=== PATIENT | female | born 2000 | race Caucasian/White ===

== ENCOUNTER 2021-09-13 16:23 | Emergency (ER) | payer SELFPAY ==
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
[2021-09-13] MEDS ORDERED: LIDOCAINE 1% W/EPI 1:100,000 MDV 20 ML VIAL ONE (21:17)
[2021-09-13 21:59] LABS: Urine Blood Negative (Negative); Urine Glucose Negative (Negative); Urine Protein Negative (Negative); Urine Specific Gravity 1.025 (1.005-1.030)
--- NOTE | 2021-09-13 22:05 | EDPHYS ---
Physician Documentation [facility] Name: Roseann Samuel Age: 21 yrs Sex: Female : 2000 Arrival Date: 09/13/2021 Time: 16:25 Bed 25 Private MD: ED Physician Robert Elder HPI: 09/13 19:00 This 21 yrs old Female presents to ER via Ambulatory with complaints of Lump on Arm. cp 19:00 The patient or guardian complains of an abscess, small. cp 19:00 The complaints affect the dorsal aspect of left forearm. Context: resulted from unknown cp cause. Onset: The symptoms/episode began/occurred 4 day(s) ago. Treatment prior to arrival includes: no previous treatment. Associated signs and symptoms: Pertinent positives: erythema, pain, swelling, warmth, Pertinent negatives: fever. Severity of symptoms: in the emergency department the symptoms are unchanged. Historical: - Allergies: 17:56 PENICILLINS; iw ROS: 19:05 Constitutional: Negative for body aches, chills, fever, poor PO intake. cp 19:05 Eyes: Negative for injury, pain, redness, and discharge. cp 19:05 Neck: Negative for pain with movement, pain at rest, stiffness. 19:05 Respiratory: Negative for shortness of breath, wheezing. 19:05 Abdomen/GI: Negative for abdominal pain, nausea, vomiting, and diarrhea. 19:05 Back: Negative for pain at rest, pain with movement. 19:05 Skin: Positive for abscess, erythema, of the volar side left proximal forearm. 19:05 All other systems are negative. Exam: 19:10 Constitutional: The patient appears in no acute distress, alert, awake, non-toxic, well cp developed, well nourished, uncomfortable. 19:10 Head/Face: Normocephalic, atraumatic. cp 19:10 Cardiovascular: Rate: normal, Pulses: Pulses are 2+ in left radial artery. 19:10 Respiratory: the patient does not display signs of respiratory distress, Respirations: normal, no use of accessory muscles, no retractions, labored breathing, is not present. 19:10 Skin: abscess, that is small, of the volar side proximal left forearm, with induration, mild surround erythema, tender to palpation. Vital Signs: 17:56 BP 115 / 74; Pulse 82; Resp 16; Temp 98.2; Pulse Ox 100% on R/A; iw 21:13 BP 111 / 78; Pulse 84; Resp 16 S; Pulse Ox 99% on R/A; bb 22:21 BP 102 / 62; Pulse 88; Resp 16 S; Pulse Ox 100% on R/A; bb Procedures: 22:00 I \T\ D: Incision and drainage was performed for an abscess of the volar side left cp proximal phalanx Prepped with Betadine, Anesthetized with 3 ml's 1% Lidocaine w/ Epi. Incised with #11 blade. Drained small amount purulent fluid. Dressing: sterile 4x4 gauze, the patient tolerated the procedure well. MDM: 20:00 Patient medically screened. cp 21:00 Differential diagnosis: cellulitis, abscess, boild. cp 22:04 Data reviewed: vital signs, nurses notes. cp 22:04 Counseling: I had a detailed discussion with the patient and/or guardian regarding: the cp historical points, exam findings, and any diagnostic results supporting the discharge/admit diagnosis, to return to the emergency department if symptoms worsen or persist or if there are any questions or concerns that arise at home. Response to treatment: the patient's symptoms have mildly improved after treatment, improved, and as a result, I will discharge patient. 09/13 21:59 Order name: Urine --Ancillary (enter results) 2 09/13 22:00 Order name: Urine Dipstick-Ancillary [facility] 09/13 18:07 Order name: I\T\D Setup; Complete Time: 21:13 09/13 21:45 Order name: Urine Dipstick-Ancillary (obtain specimen); Complete Time: 21:58 09/13 21:45 Order name: Urine Test (obtain specimen); Complete Time: 21:58 cp Administered Medications: 20:47 Drug: Lidocaine-Epinephrine -1%: (1:100,000) 5 ml {Note: by Gabe GUARDADO to affected bb area.} Volume: 20 ml; Route: Infiltration; 22:18 Follow up: Response: No adverse reaction bb 22:18 Drug: Bactrim (trimethoprim-sulfamethoxazole) (160 mg-800 mg (DS) 1 tablet Route: PO; bb 22:22 Follow up: Response: Medication administered at discharge. bb Disposition Summary: 09/13/21 22:04 Discharge Ordered Location: Home cp Problem: new cp Symptoms: have improved cp Condition: Stable cp Diagnosis - Cutaneous abscess of left upper limb cp - Encounter for test, result negative cp Followup: cp - With: Private Physician - When: 1 - 2 days - Reason: Worsening of condition Discharge Instructions: - Discharge Summary Sheet cp - Skin Abscess cp - Incision and Drainage cp Forms: - Medication Reconciliation Form cp - Thank You Letter cp - Antibiotic Education cp - Prescription Opioid Use cp Prescriptions: - Bactrim DS 800-160 mg Oral Tablet - take 1 tablet by ORAL route every 12 hours for 10 days; 20 tablet; Refills: 0, cp Product Selection Permitted - Ibuprofen 600 mg Oral Tablet - take 1 tablet by ORAL route every 8 hours As needed take with food; 30 tablet; cp Refills: 0, Product Selection Permitted - mupirocin 2 % Topical ointment - apply 1 application by TOPICAL route 3 times per day for 14 days; 30 gram; cp Refills: 0, Product Selection Permitted Addendum: 09/15/2021 07:12 Co-signature as Attending Physician, Robert Elder MD. r n Signatures: Dispatcher [employer] Myriam Vera RN RN bb Williams, Irene, RN RN iw Nieto, Roman, MD MD rn Page, Corey, PA PA cp
--- NOTE | 2021-09-13 22:05 | ER ---
Nurse's Notes [facility] Name: Roseann Samuel Age: 21 yrs Sex: Female : 2000 Arrival Date: 09/13/2021 Time: 16:25 Bed 25 Private MD: Diagnosis: Cutaneous abscess of left upper limb;Encounter for test, result negative Presentation: 09/13 17:56 Chief complaint: Patient states: abscess to LFA X 4days. Coronavirus screen: At this iw time, the client does not indicate any symptoms associated with coronavirus-19. Ebola Screen: Patient negative for fever greater than or equal to 101.5 degrees Fahrenheit, and additional compatible Ebola Virus Disease symptoms Patient denies exposure to infectious person. Patient denies travel to an Ebola-affected area in the 21 days before illness onset. No symptoms or risks identified at this time. Initial Sepsis Screen: Does the patient meet any 2 criteria? No. Patient's initial sepsis screen is negative. Does the patient have a suspected source of infection? No. Patient's initial sepsis screen is negative. Risk Assessment: Do you want to hurt yourself or someone else? Patient reports no desire to harm self or others. Onset of symptoms was September 09, 2021. 17:56 Method Of Arrival: Ambulatory iw 17:56 Acuity: ROMELIA 4 iw Historical: - Allergies: 17:56 PENICILLINS; iw Screenin:13 Abuse screen: Denies threats or abuse. Nutritional screening: No deficits noted. bb Tuberculosis screening: No symptoms or risk factors identified. Fall Risk None identified. Assessment: 21:13 General: Appears in no apparent distress. slender, Behavior is calm, cooperative. Pain: bb Complains of pain in left arm. Neuro: Level of Consciousness is awake, alert, obeys commands, Oriented to person, place, time, situation. Cardiovascular: Capillary refill < 3 seconds Patient's skin is warm and dry. Respiratory: Respiratory effort is even, unlabored, Respiratory pattern is regular. GI: No signs and/or symptoms were reported involving the gastrointestinal system. Derm: Abscess located on left arm. Musculoskeletal: Circulation, motion, and sensation intact. 22:20 Reassessment: Patient is alert, oriented x 3, equal unlabored respirations, skin bb warm/dry/pink. bandage to left forearm in place pt verbalized understanding of and agrees to plan of care discharge instructions given pt ambulated with steady gait to exit. Vital Signs: 17:56 BP 115 / 74; Pulse 82; Resp 16; Temp 98.2; Pulse Ox 100% on R/A; iw 21:13 BP 111 / 78; Pulse 84; Resp 16 S; Pulse Ox 99% on R/A; bb 22:21 BP 102 / 62; Pulse 88; Resp 16 S; Pulse Ox 100% on R/A; bb ED Course: 16:25 Patient arrived in ED. ja2 17:43 Gabe Morris PA is PHCP. cp 17:43 Robert Elder MD is Attending Physician. cp 17:56 Triage completed. iw 21:13 Myriam Olivarez RN is Primary Nurse. bb 21:13 Patient has correct armband on for positive identification. Bed in low position. Call bb light in reach. 22:22 No provider procedures requiring assistance completed. Patient did not have IV access bb during this emergency room visit. Administered Medications: 20:47 Drug: Lidocaine-Epinephrine -1%: (1:100,000) 5 ml {Note: by Gabe GUARDADO to affected bb area.} Volume: 20 ml; Route: Infiltration; 22:18 Follow up: Response: No adverse reaction bb 22:18 Drug: Bactrim (trimethoprim-sulfamethoxazole) (160 mg-800 mg (DS) 1 tablet Route: PO; bb 22:22 Follow up: Response: Medication administered at discharge. bb Outcome: 22:04 Discharge ordered by MD. cp 22:22 Discharged to home ambulatory. bb 22:22 Condition: stable 22:22 Discharge instructions given to patient, Instructed on discharge instructions, follow up and referral plans. medication usage, wound care, Demonstrated understanding of instructions, follow-up care, medications, wound care, Prescriptions given X 3. 22:28 Patient left the ED. bb Signatures: Myriam Olivarez, RN RN Mandy Albarado RN RN iw Page, Corey, PA PA cp Alexander, Jessica ja2
[2021-09-13] MEDS ORDERED: SMZ./TMP. 800/160 MG TABLET ONE (22:25)
[2021-09-13 22:31] LABS: Urine Specific Gravity/Preg 1.025 (1.005-1.030)
[2021-09-13 22:48] VITALS: TEMP 98.2
[2021-09-13 22:51] VITALS: BP 102/62; O2SAT 100
== END 2021-09-13 22:28 | disposition home or self-care (01) ==
LOC: ER 16:23
PROC: 0H9EXZZ Drainage of Left Lower Arm Skin, External Approach (ICD-10-PCS; principal; 2021-09-13)
DX: L02.414 Cutaneous abscess of left upper limb (principal); Z32.02 Encounter for pregnancy test, result negative; Z88.0 Allergy status to penicillin
CPT/HCPCS: 81003; 81025; 99283